=== PATIENT | male | born 1950 | race Caucasian/White ===

== ENCOUNTER 2019-09-13 08:48 | Observation (INO) | payer OTHER ==
[~2019-09-13] VITALS: Ht 167.6 cm; Wt 104.3 kg
[~2019-09-13 08:48] MED LIST: ASPI-1153 PO; GLUXR500 PO; LIP40 PO; VALS80TA2 PO
[2019-09-13 09:00] VITALS: BP_SYST 125
--- NOTE | 2019-09-13 09:55 | NUR ---
Patient to ER bed 7 to gown for evaluation. Side rails up. Report given to Flower WALL.
--- NOTE | 2019-09-13 09:56 | NUR ---
Patient arrived in the ED accompanied by his c/o hematuria that started this morning. Denied any chest pain or shortness of breath. Denied any fevers, chills, nausea or vomiting. Patient is alert and oriented x4, respirations even and unlabored, speaking in full sentences and ambulating with a steady gait. VSS and pain level 0/10. Informed of approximate wait time. at bedside. Instructed to notify ED staff DEANA for any changes in condition or worsening of symptoms. Patient verbalized understanding.
--- NOTE | 2019-09-13 09:58 | NUR ---
ER Dr. Hogan at bedside examining patient.
[2019-09-13] MEDS ORDERED: NACL 0.9% 1,000 ML IV ONE (10:00)
--- NOTE | 2019-09-13 10:14 | NUR ---
electroencephalographic technician at bedside collecting blood specimen as ordered by Dr. Hogan. Patient tolerated the procedure well.
--- NOTE | 2019-09-13 10:19 | NUR ---
ER Dr. Hogan at bedside re-examining patient.
--- NOTE | 2019-09-13 10:25 | NUR ---
Urine specimen collected and dropped off at the lab.
--- NOTE | 2019-09-13 10:38 | NUR ---
Patient taken to CT via gurney, in stable condition.
--- NOTE | 2019-09-13 10:42 | NUR ---
Patient is back from CT in stable condition.
[2019-09-13 10:59] LABS: BASOPHILS # (AUTO) 0.1 K/uL (0.0-0.2); BASOPHILS % (AUTO) 0.6 % (0.0-2.0); EOSINOPHILS # (AUTO) 0.3 K/uL (0.0-0.4); EOSINOPHILS % (AUTO) 2.7 % (0.0-4.0); HEMATOCRIT 48.6 % (36-54); HEMOGLOBIN 16.2 g/dL (14.0-18.0); LYMPHOCYTES # (AUTO) 1.6 K/uL (1.0-5.5); LYMPHOCYTES % (AUTO) 14.9 % (20.5-51.5); MEAN CORPUSCULAR HEMOGLOBIN 32 pg (27-31); MEAN CORPUSCULAR HGB CONC 33 % (32-36); MEAN CORPUSCULAR VOLUME 96 fL (79.0-98.0); MONOCYTES # (AUTO) 0.6 K/uL (0.0-1.0); MONOCYTES % (AUTO) 6.1 % (1.7-9.3); NEUTROPHILS # (AUTO) 7.9 K/uL (1.8-7.7); NEUTROPHILS % (AUTO) 75.7 % (40.0-70.0); PLATELET COUNT (AUTO) 299 K/uL (130-430); RED BLOOD CELL COUNT(AUTO) 5.08 MIL/uL (4.2-6.2); RED CELL DISTRIBUTION WIDTH 14.6 % (9.0-15.0); WHITE BLOOD COUNT (AUTO) 10.5 K/uL (4.8-10.8)
--- NOTE | 2019-09-13 11:05 | NUR ---
# 20 gauge angiocath placed to LAC. Use of asceptic technique. Opsite placed over site. Blood return noted. Flushed with 10 cc of normal saline. No evidence of infiltration noted. Patient tolerated well.
[2019-09-13 11:16] LABS: CALCIUM 9.3 mg/dL (8.4-11.0); CREATININE 1.15 mg/dL (0.55-1.30)
[2019-09-13 11:19] LABS: PROTHROMBIN TIME 10.5 SECS (9.5-12.5)
[2019-09-13 11:30] LABS: ALBUMIN 3.4 g/dL (3.4-4.8); TOTAL BILIRUBIN 1.6 mg/dL (0.0-1.0)
[2019-09-13 13:09] LABS: BLOOD, URINE 3+ (NEGATIVE); CLARITY/URINE TURBID (CLEAR); COLOR,URINE RED (YELLOW); GLUCOSE,URINE NEGATIVE (NEGATIVE); KETONES,URINE NEGATIVE (NEGATIVE); LEUKOCYTE ESTERASE ,URINE NEGATIVE (NEGATIVE); NITRITE, URINE NEGATIVE (NEGATIVE); PH,URINE 6.5 (5.0-8.0); PROTEIN URINE 2+ (NEGATIVE)
--- NOTE | 2019-09-13 13:30 | NUR ---
Informed the patient that we are still waiting on the test results. Verbalized understanding. Patient is resting comfortably in bed.
[2019-09-13 13:32] LABS: BILIRUBIN,URINE NEGATIVE (NEGATIVE)
[2019-09-13 13:33] LABS: RBC,URINE >100 /HPF (0-3)
[2019-09-13 13:34] LABS: BACTERIA,URINE FEW /HPF (None Seen); MUCUS,URINE 1+ /LPF (None Seen); WBC,URINE 0-3 /HPF (0-3)
--- NOTE | 2019-09-13 13:42 | NUR ---
CALLED DR. Amadeo PAEZ FOR ADMISSION THROUGH [facility], [facility].
--- NOTE | 2019-09-13 13:53 | NUR ---
Received admitting orders from Dr. Amadeo Rosales. Called for bed, CN will call back.
[2019-09-13] MEDS ORDERED: LEVOFLOXACIN 500 MG/D5W 100 ML IV ONE (14:00)
--- NOTE | 2019-09-13 14:18 | NUR ---
REPORT GIVEN TO Sandro OVER THE PHONE.
--- NOTE | 2019-09-13 14:20 | NUR ---
Patient will be admitted to care of Dr. Amadeo Rosales. Admitted to Medsurg unit. Will go to room 100B. Belongings list completed. Complete and up to date summary report printed. SBAR report to be given at bedside with opportunity for questions.
--- NOTE | 2019-09-13 14:22 | NUR ---
ADMISSION NOTE Received patient from ER via rg, received report from JULIA WALL. Patient admitted with diagnosis of HEMATURIA. Patient oriented to hospital routine, call light, toileting and safety-patient verbalized understanding.
[2019-09-13 14:35] VITALS: BP_SYST 135
--- NOTE | 2019-09-13 14:42 | NUR ---
Uro consult called: for Timmy Turner, regarding hematuria, ordered by Dr. Rosales, spoke with Nati.
--- NOTE | 2019-09-13 15:00 | NUR ---
Patient awake and resting in bed, denies any SOB or pain. No signs or symptoms of acute distress noted.
--- NOTE | 2019-09-13 15:01 | NUR ---
Patient is ambulatory with clear yellow urine denies any dysuria, afebrile.
[2019-09-13 15:28] LABS: HEMATOCRIT 47.6 % (36-54); HEMOGLOBIN 15.7 g/dL (14.0-18.0)
--- NOTE | 2019-09-13 16:00 | NUR ---
Family at bedside. Updated on patient status and plan of care. Education provided and all questions answered clearly.
[2019-09-13 16:15] VITALS: BP_SYST 137
[2019-09-13] MEDS ORDERED: INSULIN REGULAR, HUMAN 100 UNITS/ML, 10 ML VIAL (humuLIN R) SUBCUT PRN (16:45)
[2019-09-13] MEDS ORDERED: LEVOFLOXACIN 500 MG/D5W 100 ML IV SCH (16:45)
[2019-09-13] MEDS ORDERED: ONDANSETRON HCL 4 MG/2 ML VIAL IVP PRN (16:45)
[2019-09-13] MEDS ORDERED: LORazepam 2 MG/ML VIAL IVP PRN (16:45)
[2019-09-13] MEDS ORDERED: HYDROcodone/ACETAMIN 5-325 MG TAB (NORCO/ VICODIN) PO PRN (16:45)
[2019-09-13] MEDS ORDERED: ACETAMINOPHEN 325 MG TABLET PO PRN (16:45)
[2019-09-13] MEDS ORDERED: HYDROcodone/ACETAMIN 10-325 MG TAB PO PRN (16:45)
--- NOTE | 2019-09-13 16:46 | NUR ---
Spoke with Dr. Rosales on the phone. New orders received.
--- NOTE | 2019-09-13 18:27 | NUR ---
Patient sitting up in bed eating dinner and watching TV, denies any SOB or pain. Family at bedside. No signs or symptoms of acute distress noted.
--- NOTE | 2019-09-13 19:25 | NUR ---
Endorsement Endorsed bedside report to oncoming RN using SBAR approach for continuation of care.
[2019-09-13 20:00] VITALS: BP_SYST 140
[2019-09-13] MEDS: NORMAL SALINE 5 ML DISP.SYRIN IVF SCH ×2 (21:15→21:17)
--- NOTE | 2019-09-13 23:00 | NUR ---
received pt in bed v/s and assessment done same stable c/o a headache and cannot sleep because of noise ,medicated for pain now resting with door closed and advised to turn tv off.
[2019-09-14] VITALS: BP_SYST 130
--- NOTE | 2019-09-14 | NUR ---
pt c/o headcehe meds given for same with good effect
--- NOTE | 2019-09-14 04:29 | NUR ---
pt c/o feeling very anxious remembering his mother and godmother recent and his purchase of a new home,pt states he is feeling overwhelm and cant sleep .pt states he uses a bipap at nights ,pt medicated for anxiety made comfortable ,now resting in no further distress at this time
[2019-09-14 06:27] LABS: BASOPHILS % (AUTO) 0.2 % (0.0-2.0); EOSINOPHILS # (AUTO) 0.3 K/uL (0.0-0.4); EOSINOPHILS % (AUTO) 3.6 % (0.0-4.0); HEMATOCRIT 46.8 % (36-54); HEMOGLOBIN 15.3 g/dL (14.0-18.0); LYMPHOCYTES # (AUTO) 1.6 K/uL (1.0-5.5); LYMPHOCYTES % (AUTO) 20.2 % (20.5-51.5); MEAN CORPUSCULAR HEMOGLOBIN 31 pg (27-31); MEAN CORPUSCULAR HGB CONC 33 % (32-36); MEAN CORPUSCULAR VOLUME 95 fL (79.0-98.0); MONOCYTES # (AUTO) 0.6 K/uL (0.0-1.0); MONOCYTES % (AUTO) 7.4 % (1.7-9.3); NEUTROPHILS # (AUTO) 5.6 K/uL (1.8-7.7); NEUTROPHILS % (AUTO) 68.6 % (40.0-70.0); PLATELET COUNT (AUTO) 255 K/uL (130-430); RED BLOOD CELL COUNT(AUTO) 4.91 MIL/uL (4.2-6.2); RED CELL DISTRIBUTION WIDTH 14.5 % (9.0-15.0); WHITE BLOOD COUNT (AUTO) 8.1 K/uL (4.8-10.8)
[2019-09-14] MEDS: NORMAL SALINE 5 ML DISP.SYRIN IVF SCH ×2 (06:51)
[2019-09-14 06:52] LABS: ALBUMIN 2.9 g/dL (3.4-4.8); CREATININE 1.18 mg/dL (0.55-1.30); POTASSIUM 3.6 mmol/L (3.5-5.1); TOTAL BILIRUBIN 1.7 mg/dL (0.0-1.0)
[2019-09-14 08:00] VITALS: BP_SYST 140
--- NOTE | 2019-09-14 08:00 | NUR ---
ASSUMPTION OF CARE: RECEIVED PT A/A/0X4, DX:RISK FOR HYPOVOLEMIA, R/T HEMATURIA. PT IS AFEBRILE, VS WNL, NO S/S OF DISTRESS, BREATH SOUNDS ARE CLEAR, BREATHING UNLABORED, IV SITE INTACT, PATENT, NO REDNESS OR SWELLING, ORIENTED TO CALL LIGHT, PLACED WITHIN REACH, WILL CONT' TO MONITOR AND ASSESS.
[2019-09-14] MEDS ORDERED: LOSARTAN POTASSIUM 50 MG TABLET (COZAAR) PO SCH (09:00)
[2019-09-14] MEDS ORDERED: ATORVASTATIN 20 MG TABLET PO SCH (09:00)
--- NOTE | 2019-09-14 09:00 | NUR ---
SHELTERED WORKSHOP EXECUTIVE DIRECTOR: MORNING MEDS GIVEN, PER ORDERED BY Farnaz, TOLERATED WELL, WILL CONT' TO MONITOR, WILL CONT' WITH POC.
--- NOTE | 2019-09-14 11:30 | NUR ---
GLUCOSE MONITORING: BLOOD SUGAR LEVEL=97, NO COVERAGE REQUIRED, TOLERATING WELL, WILL CONT' WITH POC.
[2019-09-14 11:42] VITALS: BP_SYST 143
--- NOTE | 2019-09-14 12:20 | NUR ---
DISCHARGE: PT DISCHARGED TO HOME, CONDITION IS STABLE, INSTRUCTIONS GIVEN WITH HOME MED RECONCILIATION, PT WILL SCHEDULE APPT WITH PCP, VERBALIZES UNDERSTANDING, ALL BELONGINGS ACCOUNTED FOR AND RETURNED TO PT, AT BEDSIDE FOR TRANSPORT HOME, IV SITE DISCONTINUED, TOLERATED WELL, NO S/S OF BLEEDING, WILL CONT' WITH POC.
[2019-09-14 12:32] VITALS: BP_SYST 149
== END 2019-09-14 12:20 | disposition home or self-care (01) ==
LOC: SED 08:48 → INTOOBSV 13:50 → SMU 13:50
PROVIDERS: ADMIT Internal Medicine Hospice and Palliative Medicine; ATTEND Internal Medicine Hospice and Palliative Medicine
DX: R31.9 Hematuria, unspecified (principal); J44.9 Chronic obstructive pulmonary disease, unspecified; I12.9 Hypertensive chronic kidney disease with stage 1 through stage 4 chronic kidney disease, or unspecified chronic kidney disease; N18.9 Chronic kidney disease, unspecified; E11.22 Type 2 diabetes mellitus with diabetic chronic kidney disease; G47.33 Obstructive sleep apnea (adult) (pediatric); E78.5 Hyperlipidemia, unspecified; R79.89 Other specified abnormal findings of blood chemistry
CPT/HCPCS: 36415 ×2; 74176; 80053 ×2; 81000; 82962 ×2; 85018; 85025 ×2; 85610; 85730; 87040; 87086; 87186; 96365; 96366; 96372; 96375; 99285; G0378; J1956; J2060; 96361; J7030

== ENCOUNTER 2020-09-05 21:57 | Inpatient (IN) | payer OTHER, SELFPAY ==
[~2020-09-05] VITALS: Ht 170.2 cm; Wt 90.7 kg
[~2020-09-05 21:57] MED LIST changes: -ASPI-1153 PO
[2020-09-05 22:29] VITALS: BP_SYST 117
[2020-09-06 00:06] LABS: BASOPHILS # (AUTO) 0.1 K/uL (0.0-0.2); BASOPHILS % (AUTO) 0.8 % (0.0-2.0); HEMATOCRIT 48.2 % (36-54); HEMOGLOBIN 16.1 g/dL (14.0-18.0); LYMPHOCYTES # (AUTO) 0.7 K/uL (1.0-5.5); LYMPHOCYTES % (AUTO) 9.3 % (20.5-51.5); MEAN CORPUSCULAR HEMOGLOBIN 31 pg (27-31); MEAN CORPUSCULAR HGB CONC 34 % (32-36); MEAN CORPUSCULAR VOLUME 92 fL (79.0-98.0); MONOCYTES # (AUTO) 0.7 K/uL (0.0-1.0); MONOCYTES % (AUTO) 8.7 % (1.7-9.3); NEUTROPHILS # (AUTO) 6.2 K/uL (1.8-7.7); NEUTROPHILS % (AUTO) 81.2 % (40.0-70.0); PLATELET COUNT (AUTO) 233 K/uL (130-430); RED BLOOD CELL COUNT(AUTO) 5.25 MIL/uL (4.2-6.2); RED CELL DISTRIBUTION WIDTH 14.4 % (9.0-15.0); WHITE BLOOD COUNT (AUTO) 7.6 K/uL (4.8-10.8)
[2020-09-06] MEDS ORDERED: LevALBUTEROL HCL 1.25 MG/0.5 ML *CONC.* VIAL.NEB (XOPENEX CONC.) INH ONE (00:15)
[2020-09-06] MEDS ORDERED: IPRATROPIUM BROM 0.5 MG/2.5 ML VIAL.NEB (ATROVENT) INH ONE ×2 (00:15→00:20)
[2020-09-06 00:17] LABS: INR 1.1 (0.80-1.20); PROTHROMBIN TIME 11.5 SECS (9.5-12.5)
[2020-09-06 00:23] LABS: ANION GAP 9 (5-15); CALCIUM 7.7 mg/dL (8.4-11.0); CHLORIDE 97 mmol/L (98-107); CREATININE 1.22 mg/dL (0.55-1.30); GLUCOSE 130 mg/dL (70-99); POTASSIUM 3.6 mmol/L (3.5-5.1); SODIUM SERUM 134 mmol/L (136-145); UREA NITROGEN, BLOOD 32 mg/dL (8-21)
[2020-09-06 00:28] LABS: ALANINE AMINOTRANSFERASE 114 U/L (12-78); ASPARTATE AMINOTRANSFERASE 114 U/L (10-37); LACTATE DEHYDROGENASE 497 U/L (85-227); TOTAL BILIRUBIN 1.5 mg/dL (0.0-1.0)
[2020-09-06 00:54] LABS: CKMB RELATIVE INDEX 0.1 (0.0-2.9); CREATINE KINASE MB 0.6 ng/mL (0-3.6)
[2020-09-06 00:57] LABS: C-REACTIVE PROTEIN QUANT 12.6 mg/dL (0-0.5)
[2020-09-06 01:05] LABS: ALBUMIN 2.8 g/dL (3.4-4.8)
[2020-09-06] MEDS ORDERED: NACL 0.9% 1,000 ML IV ONE (01:45)
[2020-09-06] MEDS ORDERED: cefTRIAXone 1 GM IVPB PREMIX 50 ML IV ONE (01:45)
[2020-09-06] MEDS ORDERED: AZITHROMYCIN 500 MG in NS 250 ML IV ONE (01:45)
[2020-09-06] MEDS ORDERED: AZITHROMYCIN 500 MG/VIAL (ZITHROMAX) IV ONE (01:56)
[2020-09-06 03:16] VITALS: BP_SYST 106
[2020-09-06] MEDS ORDERED: ALBUTEROL SULFATE 0.083% 2.5 MG/3 ML VIAL.NEB INH PRN (08:15)
[2020-09-06] MEDS ORDERED: INSULIN REGULAR, HUMAN 100 UNITS/ML, 10 ML VIAL (humuLIN R) SUBCUT PRN (08:15)
[2020-09-06] MEDS ORDERED: IPRATROPIUM BROM 0.5 MG/2.5 ML VIAL.NEB (ATROVENT) INH PRN (08:15)
[2020-09-06] MEDS ORDERED: DEXTROSE 50% JECT 50 ML DISP.SYRIN IVP PRN (08:15)
[2020-09-06 08:29] VITALS: BP_SYST 122
[2020-09-06] MEDS ORDERED: HYDROcodone/ACETAMIN 5-325 MG TAB (NORCO/ VICODIN) PO PRN (08:30)
[2020-09-06] MEDS ORDERED: HYDROcodone/ACETAMIN 10-325 MG TAB PO PRN (08:30)
[2020-09-06] MEDS ORDERED: ONDANSETRON HCL 4 MG/2 ML VIAL IVP PRN (08:30)
[2020-09-06] MEDS ORDERED: LORazepam 2 MG/ML VIAL IVP PRN (08:30)
[2020-09-06] MEDS ORDERED: NALOXONE HCL 0.4 MG/ML AMP (NARCAN) IVP PRN ×2 (08:30)
[2020-09-06] MEDS ORDERED: ACETAMINOPHEN 325 MG TABLET PO PRN (08:30)
[2020-09-06 08:35] VITALS: BP_SYST 122
[2020-09-06 08:59] LABS: BASOPHILS % (AUTO) 0.6 % (0.0-2.0); EOSINOPHILS % (AUTO) 0.1 % (0.0-4.0); HEMATOCRIT 45.6 % (36-54); HEMOGLOBIN 15.2 g/dL (14.0-18.0); LYMPHOCYTES # (AUTO) 1.1 K/uL (1.0-5.5); LYMPHOCYTES % (AUTO) 16.8 % (20.5-51.5); MEAN CORPUSCULAR HEMOGLOBIN 31 pg (27-31); MEAN CORPUSCULAR HGB CONC 33 % (32-36); MEAN CORPUSCULAR VOLUME 92 fL (79.0-98.0); MONOCYTES # (AUTO) 0.6 K/uL (0.0-1.0); MONOCYTES % (AUTO) 8.6 % (1.7-9.3); NEUTROPHILS % (AUTO) 73.9 % (40.0-70.0); PLATELET COUNT (AUTO) 228 K/uL (130-430); RED BLOOD CELL COUNT(AUTO) 4.97 MIL/uL (4.2-6.2); RED CELL DISTRIBUTION WIDTH 14.7 % (9.0-15.0); WHITE BLOOD COUNT (AUTO) 6.8 K/uL (4.8-10.8)
[2020-09-06] MEDS ORDERED: ENOXAPARIN SODIUM 40 MG/0.4 ML SYRINGE SUBCUT ONE (09:00)
[2020-09-06 09:12] LABS: ANION GAP 7 (5-15); CALCIUM 7.5 mg/dL (8.4-11.0); CHLORIDE 100 mmol/L (98-107); CREATININE 2.22 mg/dL (0.55-1.30); GLUCOSE 115 mg/dL (70-99); POTASSIUM 3.3 mmol/L (3.5-5.1); SODIUM SERUM 138 mmol/L (136-145); UREA NITROGEN, BLOOD 35 mg/dL (8-21)
[2020-09-06 09:17] LABS: ALANINE AMINOTRANSFERASE 114 U/L (12-78); ALBUMIN 2.5 g/dL (3.4-4.8); ASPARTATE AMINOTRANSFERASE 119 U/L (10-37); TOTAL BILIRUBIN 1.1 mg/dL (0.0-1.0)
[2020-09-06] MEDS ORDERED: DEXAMETHASONE SOD PHOSPHATE 10 MG/ML VIAL IVP ONE (10:00)
[2020-09-06] MEDS ORDERED: LOSARTAN POTASSIUM 50 MG TABLET (COZAAR) PO ONE (10:00)
[2020-09-06] MEDS: ATORVASTATIN 20 MG TABLET PO SCH (10:26)
[2020-09-06] MEDS ORDERED: IPRATROPIUM BROM 0.5 MG/2.5 ML VIAL.NEB (ATROVENT) INH SCH (13:00)
[2020-09-06] MEDS ORDERED: ALBUTEROL SULFATE 0.083% 2.5 MG/3 ML VIAL.NEB INH SCH (13:00)
[2020-09-06] MEDS: NORMAL SALINE 5 ML DISP.SYRIN IVF SCH ×2 (14:00→23:23)
[2020-09-06] MEDS: IPRATROPIUM BROM 0.5 MG/2.5 ML VIAL.NEB (ATROVENT) INH SCH ×2 (19:00→23:00)
[2020-09-06] MEDS: ALBUTEROL SULFATE 0.083% 2.5 MG/3 ML VIAL.NEB INH SCH ×2 (19:00→23:00)
[2020-09-06 20:00] VITALS: BP_SYST 118
[2020-09-06] MEDS: ENOXAPARIN SODIUM 40 MG/0.4 ML SYRINGE SUBCUT SCH (21:00)
[2020-09-06] MEDS: cefTRIAXone 1 GM in D5W 50 ML IV SCH (21:00)
[2020-09-06] MEDS: AZITHROMYCIN 500 MG in NS 250 ML IV SCH (22:00)
[2020-09-07] VITALS: BP_SYST 115
[2020-09-07] MEDS ORDERED: ALBUTEROL MDI INHALATION 8 GM INH INH PRN (01:30)
[2020-09-07] MEDS: NORMAL SALINE 5 ML DISP.SYRIN IVF SCH ×3 (05:02→22:11)
[2020-09-07] MEDS: ALBUTEROL MDI INHALATION 8 GM INH INH SCH ×4 (07:40→19:00)
[2020-09-07 07:54] LABS: BASOPHILS % (AUTO) 0.3 % (0.0-2.0); HEMATOCRIT 42.2 % (36-54); HEMOGLOBIN 14.2 g/dL (14.0-18.0); LYMPHOCYTES # (AUTO) 0.8 K/uL (1.0-5.5); LYMPHOCYTES % (AUTO) 11.6 % (20.5-51.5); MEAN CORPUSCULAR HEMOGLOBIN 31 pg (27-31); MEAN CORPUSCULAR HGB CONC 34 % (32-36); MEAN CORPUSCULAR VOLUME 91 fL (79.0-98.0); MONOCYTES # (AUTO) 0.5 K/uL (0.0-1.0); MONOCYTES % (AUTO) 6.5 % (1.7-9.3); NEUTROPHILS # (AUTO) 5.7 K/uL (1.8-7.7); NEUTROPHILS % (AUTO) 81.6 % (40.0-70.0); PLATELET COUNT (AUTO) 248 K/uL (130-430); RED BLOOD CELL COUNT(AUTO) 4.63 MIL/uL (4.2-6.2); RED CELL DISTRIBUTION WIDTH 14.3 % (9.0-15.0)
[2020-09-07 08:00] VITALS: BP_SYST 124
[2020-09-07 08:00] LABS: TOTAL IRON BIND. CAPACITY 196 ug/dL (250-450)
[2020-09-07 08:05] LABS: C-REACTIVE PROTEIN QUANT 8.6 mg/dL (0-0.5)
[2020-09-07 08:12] LABS: ALANINE AMINOTRANSFERASE 111 U/L (12-78); ALBUMIN 2.4 g/dL (3.4-4.8); ANION GAP 8 (5-15); ASPARTATE AMINOTRANSFERASE 89 U/L (10-37); CALCIUM 7.9 mg/dL (8.4-11.0); CHLORIDE 103 mmol/L (98-107); CREATININE 1.83 mg/dL (0.55-1.30); GLUCOSE 143 mg/dL (70-99); LIPASE 539 U/L (73-393); POTASSIUM 3.8 mmol/L (3.5-5.1); SODIUM SERUM 142 mmol/L (136-145); TOTAL BILIRUBIN 0.9 mg/dL (0.0-1.0); UREA NITROGEN, BLOOD 42 mg/dL (8-21)
[2020-09-07 08:13] LABS: ACETAMINOPHEN < 1 ug/mL (1-30)
[2020-09-07] MEDS ORDERED: LOSARTAN POTASSIUM 50 MG TABLET (COZAAR) PO SCH (09:00)
[2020-09-07] MEDS: DEXAMETHASONE SOD PHOSPHATE 10 MG/ML VIAL IVP SCH (09:39)
[2020-09-07] MEDS: ENOXAPARIN SODIUM 40 MG/0.4 ML SYRINGE SUBCUT SCH (09:39)
[2020-09-07] MEDS: ATORVASTATIN 20 MG TABLET PO SCH (09:42)
[2020-09-07] MEDS: NACL 0.9% 1,000 ML IV SCH (11:00)
[2020-09-07 12:45] VITALS: BP_SYST 132
[2020-09-07 16:43] VITALS: BP_SYST 131
[2020-09-07] MEDS: INSULIN REGULAR, HUMAN 100 UNITS/ML, 10 ML VIAL (humuLIN R) SUBCUT PRN (17:30)
[2020-09-07 20:00] VITALS: BP_SYST 126
[2020-09-07] MEDS: AZITHROMYCIN 500 MG in NS 250 ML IV SCH (22:11)
[2020-09-07] MEDS: cefTRIAXone 1 GM in D5W 50 ML IV SCH (22:12)
[2020-09-08 00:01] VITALS: BP_SYST 133
[2020-09-08] MEDS: NACL 0.9% 1,000 ML IV SCH ×3 (01:18→23:13)
[2020-09-08] MEDS: NORMAL SALINE 5 ML DISP.SYRIN IVF SCH ×3 (05:40→22:30)
[2020-09-08 06:35] LABS: BASOPHILS % (AUTO) 0.3 % (0.0-2.0); EOSINOPHILS % (AUTO) 0.2 % (0.0-4.0); HEMATOCRIT 41.5 % (36-54); HEMOGLOBIN 14.1 g/dL (14.0-18.0); LYMPHOCYTES % (AUTO) 11.3 % (20.5-51.5); MEAN CORPUSCULAR HEMOGLOBIN 32 pg (27-31); MEAN CORPUSCULAR HGB CONC 34 % (32-36); MEAN CORPUSCULAR VOLUME 93 fL (79.0-98.0); MONOCYTES # (AUTO) 0.8 K/uL (0.0-1.0); MONOCYTES % (AUTO) 9.7 % (1.7-9.3); NEUTROPHILS # (AUTO) 6.7 K/uL (1.8-7.7); NEUTROPHILS % (AUTO) 78.5 % (40.0-70.0); PLATELET COUNT (AUTO) 314 K/uL (130-430); RED BLOOD CELL COUNT(AUTO) 4.45 MIL/uL (4.2-6.2); RED CELL DISTRIBUTION WIDTH 14.5 % (9.0-15.0); WHITE BLOOD COUNT (AUTO) 8.5 K/uL (4.8-10.8)
[2020-09-08 06:53] LABS: ALANINE AMINOTRANSFERASE 97 U/L (12-78); ALBUMIN 2.3 g/dL (3.4-4.8); ANION GAP 7 (5-15); ASPARTATE AMINOTRANSFERASE 65 U/L (10-37); CALCIUM 7.5 mg/dL (8.4-11.0); CHLORIDE 106 mmol/L (98-107); CREATININE 1.59 mg/dL (0.55-1.30); GLUCOSE 119 mg/dL (70-99); POTASSIUM 3.6 mmol/L (3.5-5.1); SODIUM SERUM 145 mmol/L (136-145); TOTAL BILIRUBIN 0.7 mg/dL (0.0-1.0); UREA NITROGEN, BLOOD 41 mg/dL (8-21)
[2020-09-08] MEDS: ALBUTEROL MDI INHALATION 8 GM INH INH SCH ×5 (07:00→19:00)
[2020-09-08 08:47] VITALS: BP_SYST 131
[2020-09-08] MEDS: DEXAMETHASONE SOD PHOSPHATE 10 MG/ML VIAL IVP SCH (10:00)
[2020-09-08] MEDS: ATORVASTATIN 20 MG TABLET PO SCH (10:00)
[2020-09-08] MEDS ORDERED: *HEPARIN PER PHARMACY XX ONE (12:00)
[2020-09-08 12:06] LABS: ANTI NUCLEAR AB WITH REFLEX Negative (Negative)
[2020-09-08 12:30] VITALS: BP_SYST 120
[2020-09-08 12:52] LABS: INR 1.1 (0.80-1.20); PROTHROMBIN TIME 10.8 SECS (9.5-12.5)
[2020-09-08] MEDS ORDERED: HEPARIN SODIUM,PORCINE 2000 UNITS/0.4 ML BOLUS IVP PRN (13:15)
[2020-09-08] MEDS ORDERED: HEPARIN SODIUM,PORCINE 5,000 UNITS/ML VIAL IVP ONE (13:15)
[2020-09-08] MEDS ORDERED: HEPARIN SODIUM,PORCINE 3000 UNITS/0.6 ML BOLUS IVP PRN (13:15)
[2020-09-08] MEDS: HEPARIN 25,000 UNITS in 250 ML PREMIX IV PRN (13:45)
[2020-09-08 16:30] VITALS: BP_SYST 143
[2020-09-08] MEDS: INSULIN REGULAR, HUMAN 100 UNITS/ML, 10 ML VIAL (humuLIN R) SUBCUT PRN (18:36)
[2020-09-08 20:00] VITALS: BP_SYST 126
[2020-09-08] MEDS: cefTRIAXone 1 GM in D5W 50 ML IV SCH (21:00)
[2020-09-08] MEDS ORDERED: TEMAZEPAM 7.5 MG CAPSULE PO PRN (22:45)
[2020-09-08] MEDS: AZITHROMYCIN 500 MG in NS 250 ML IV SCH (23:12)
[2020-09-09 00:10] VITALS: BP_SYST 130
[2020-09-09] MEDS: ALBUTEROL MDI INHALATION 8 GM INH INH SCH ×3 (06:37→19:00)
[2020-09-09] MEDS: NORMAL SALINE 5 ML DISP.SYRIN IVF SCH ×4 (06:37→21:59)
[2020-09-09 08:00] VITALS: BP_SYST 141
[2020-09-09] MEDS: ATORVASTATIN 20 MG TABLET PO SCH (09:52)
[2020-09-09] MEDS: DEXAMETHASONE SOD PHOSPHATE 10 MG/ML VIAL IVP SCH (09:52)
[2020-09-09 11:13] LABS: HEPATITIS A AB, IgM Negative (Negative); HEPATITIS B CORE AB, IgM Negative (Negative); HEPATITIS B SURFACE AG Negative (Negative)
[2020-09-09 12:59] VITALS: BP_SYST 114
[2020-09-09] MEDS: HEPARIN 25,000 UNITS in 250 ML PREMIX IV PRN (14:41)
[2020-09-09 16:30] VITALS: BP_SYST 143
[2020-09-09 20:00] VITALS: BP_SYST 148
[2020-09-09] MEDS: NACL 0.9% 1,000 ML IV SCH (20:12)
[2020-09-09] MEDS: cefTRIAXone 1 GM in D5W 50 ML IV SCH (21:57)
[2020-09-09] MEDS: AZITHROMYCIN 500 MG in NS 250 ML IV SCH (21:58)
[2020-09-10 00:39] VITALS: BP_SYST 143
[2020-09-10] MEDS: ALBUTEROL MDI INHALATION 8 GM INH INH SCH (06:54)
[2020-09-10 07:47] LABS: BASOPHILS # (AUTO) 0.1 K/uL (0.0-0.2); EOSINOPHILS # (AUTO) 0.1 K/uL (0.0-0.4); EOSINOPHILS % (AUTO) 0.8 % (0.0-4.0); HEMATOCRIT 42.7 % (36-54); HEMOGLOBIN 14.5 g/dL (14.0-18.0); LYMPHOCYTES # (AUTO) 1.5 K/uL (1.0-5.5); LYMPHOCYTES % (AUTO) 20.2 % (20.5-51.5); MEAN CORPUSCULAR HEMOGLOBIN 32 pg (27-31); MEAN CORPUSCULAR HGB CONC 34 % (32-36); MEAN CORPUSCULAR VOLUME 93 fL (79.0-98.0); MONOCYTES # (AUTO) 0.6 K/uL (0.0-1.0); MONOCYTES % (AUTO) 8.3 % (1.7-9.3); NEUTROPHILS % (AUTO) 69.7 % (40.0-70.0); PLATELET COUNT (AUTO) 340 K/uL (130-430); RED CELL DISTRIBUTION WIDTH 14.2 % (9.0-15.0); WHITE BLOOD COUNT (AUTO) 7.2 K/uL (4.8-10.8)
[2020-09-10 08:00] VITALS: BP_SYST 133
[2020-09-10 08:18] LABS: ALANINE AMINOTRANSFERASE 156 U/L (12-78); ALBUMIN 2.2 g/dL (3.4-4.8); ANION GAP 8 (5-15); ASPARTATE AMINOTRANSFERASE 114 U/L (10-37); CALCIUM 7.5 mg/dL (8.4-11.0); CHLORIDE 109 mmol/L (98-107); GLUCOSE 96 mg/dL (70-99); POTASSIUM 3.7 mmol/L (3.5-5.1); SODIUM SERUM 142 mmol/L (136-145); TOTAL BILIRUBIN 0.8 mg/dL (0.0-1.0); UREA NITROGEN, BLOOD 25 mg/dL (8-21)
[2020-09-10 08:34] VITALS: BP_SYST 143
[2020-09-10] MEDS: ATORVASTATIN 20 MG TABLET PO SCH (09:34)
[2020-09-10] MEDS: DEXAMETHASONE SOD PHOSPHATE 10 MG/ML VIAL IVP SCH (09:34)
[2020-09-10 10:10] VITALS: BP_SYST 133
[2020-09-10 15:13] LABS: ANTI-SMOOTH MUSCLE AB 16 Units (0-19)
[2020-09-11 14:34] LABS: CERULOPLASMIN 32.5 MG/DL (15.0-30.0)
[2020-09-11 14:44] LABS: ALPHA-1-ANTITRYPSIN, S 220 mg/dL (101-187)
== END 2020-09-10 10:45 | disposition home health service (06) | DRG 871 ==
LOC: SED 21:57 → STU 09-06 01:44
PROVIDERS: ADMIT Internal Medicine Hospice and Palliative Medicine; ATTEND Internal Medicine Hospice and Palliative Medicine
PROC: XW13325 Transfusion of Convalescent Plasma (Nonautologous) into Peripheral Vein, Percutaneous Approach, New Technology Group 5 (ICD-10-PCS; principal; 2020-09-07)
DX: A41.89 Other specified sepsis (principal); J96.01 Acute respiratory failure with hypoxia; J18.9 Pneumonia, unspecified organism; J44.1 Chronic obstructive pulmonary disease with (acute) exacerbation; J44.0 Chronic obstructive pulmonary disease with (acute) lower respiratory infection; E87.1 Hypo-osmolality and hyponatremia; E87.4 Mixed disorder of acid-base balance; I45.2 Bifascicular block; R17 Unspecified jaundice; N17.9 Acute kidney failure, unspecified; D72.810 Lymphocytopenia; E11.65 Type 2 diabetes mellitus with hyperglycemia; E66.9 Obesity, unspecified; E78.5 Hyperlipidemia, unspecified; E83.51 Hypocalcemia; E88.09 Other disorders of plasma-protein metabolism, not elsewhere classified; F10.10 Alcohol abuse, uncomplicated; I11.9 Hypertensive heart disease without heart failure; R74.01 Elevation of levels of liver transaminase levels; Z87.891 Personal history of nicotine dependence; Z68.31 Body mass index [BMI] 31.0-31.9, adult
CPT/HCPCS: 36415; 36430; 36600; 71045; 76700-TC; 80053; 80074; 82103; 82390; 82550-TC; 82553-TC; 82728; 82803-TC; 82962; 83516; 83540-TC; 83550-TC; 83605; 83615-TC; 83690-TC; 83735-TC; 83880; 84100-TC; 84443-TC; 84484; 85025; 85379; 85384-TC; 85610-TC; 85730-TC; 86038; 86140; 86886; 86900; 86901; 87040-TC; 93005; 93970; 94640; 94760; 96365; 99291; G0378; G0480; G0481; J0456; J0696; J1100; J1644; J1650; J1815; J7030; J7050; J7060; J7612; P9017; U0003